=== PATIENT | female | born 1995 | race Caucasian/White ===

== ENCOUNTER 2017-10-11 11:26 | Emergency (ER) | payer BC ==
[~2017-10-11] VITALS: Ht 165.1 cm; Wt 47.7 kg
[2017-10-11 11:31] VITALS: TEMP 98.3
[2017-10-11 13:14] LABS: HIV 1/2 Antibodies Non-Reactive; HIV-1p24 Antigen Non-Reactive
[2017-10-11 14:46] VITALS: BP 124/74; PULSE 95
== END 2017-10-11 14:46 | disposition home or self-care (01) ==
LOC: COL.ER 11:26
PROVIDERS: Emergency Medicine
DX: T74.21XA Adult sexual abuse, confirmed, initial encounter (principal); Y07.9 Unspecified perpetrator of maltreatment and neglect
CPT/HCPCS: J0696

== ENCOUNTER → 2017-10-11 | Outpatient (REF) ==
[~2017-10-11] VITALS: Ht 165.1 cm; Wt 47.7 kg
[~2017-10-11] MED LIST: CELEXA10 MG PO; TRINESSA1 TAB PO
[2017-10-11 11:43] VITALS: BP 118/77; PULSE 91; TEMP 98.3
== END ==
LOC: COL.ER 11:41
DX: Z04.41 Encounter for examination and observation following alleged adult rape (principal)

== ENCOUNTER 2021-02-23 20:11 | Emergency (ER) | payer SELFPAY ==
[~2021-02-23] VITALS: Ht 165.1 cm; Wt 52.3 kg
[2021-02-23 20:25] VITALS: TEMP 98.1
[2021-02-23 20:48] LABS: BASO # 0.1 (0.0-0.2); BASO % 0.6 % (0.0-2.0); EOS # 0.3 (0.0-0.7); EOS % 3.2 % (0-4.0); GRAN % 62.3 % (42.2-75.2); HEMATOCRIT 40.9 % (37.0-47.0); HEMOGLOBIN 13.6 g/dl (12.5-16.0); LYMPH % 24.9 % (20.0-51.0); MEAN CELL VOLUME 85 fl (80.0-100.0); MEAN CORPUSCULAR HEMOGLOBIN 28 pg (27.0-31.0); MEAN CORPUSCULAR HGB CONC 33 g/dl (33.0-37.0); MONO # 0.7 (0.1-0.6); MONO % 8.8 % (1.7-9.3); PLATELET COUNT 195 K/mm3 (130-400); RED BLOOD COUNT 4.83 M/mm3 (4.10-5.30); REDCELL DISTRIBUTION WIDTH-CV 12.1 % (11.5-14.5)
[2021-02-23 21:00] LABS: ALBUMIN 4.3 gm/dL (3.5-5.0); BILIRUBIN,TOTAL 0.5 mg/dL (0.0-1.0); CALCIUM 9.6 mg/dL (8.4-10.2); CREATININE, serum 0.76 (0.52-1.25); TOTAL PROTEIN 7.3 gm/dL (6.4-8.2)
[2021-02-23] MEDS ORDERED: ANUSOL-HC SUPPO25 MG RC (23:38)
[2021-02-23 23:54] VITALS: BP 146/79; PULSE 80
== END 2021-02-23 23:54 | disposition home or self-care (01) ==
LOC: COL.ER 20:11
PROVIDERS: Emergency Medicine; Physician Assistant
DX: R10.32 Left lower quadrant pain (principal); R11.0 Nausea; Z87.19 Personal history of other diseases of the digestive system
CPT/HCPCS: J2405; J7030; Q9967